=== PATIENT | female | born 1990 | race Caucasian/White ===

== ENCOUNTER 2022-10-01 07:54 | Day surgery (SDC) | payer BC, SELFPAY ==
[2022-10-01 08:14] VITALS: BMI 19.3
[2022-10-01 08:19] LABS: HCG Qualitative NEGATIVE (NEGATIVE)
[2022-10-01] MEDS: LACTATED RINGER'S SOLUTION 1,000 ML 50 ML IV (08:22)
[2022-10-01 09:23] VITALS: BP 98/63; PULSE 97; RESP 18; TEMP 36.1; O2SAT 100
[2022-10-01 09:34] VITALS: BP 100/63; PULSE 95; RESP 16; O2SAT 100
--- NOTE | 2022-10-01 09:39 | P.GSPRC_ITS ---
Indications for Procedure: This patient is a 31-year-old female who presents for EGD and colonoscopy for recent ongoing episodes of nausea vomiting and diarrhea. The risks benefits options and potential complications of the procedures were discussed in detail with the patient and they agreed to proceed and consent was signed. Pre-op diagnosis: nausea vomiting diarrhea Post-op diagnosis: other (small hiatal hernia, normal colonoscopy) Procedure: EGD with biopsy,colonoscopy with biopsy Anesthesia: MAC Surgeon: Justin Ragsdale Procedure Summary: The patient was brought to the endoscopy suite and placed in the supine and upright position. Under MAC a bite block is placed. The fiberoptic endoscope was passed through the oropharynx into the esophagus. This was easily advanced in the stomach. The stomach was insufflated. The gastric mucosa appeared grossly normal. The endoscope was advanced through the pylorus into the duodenum. This was advanced to the most distal duodenum within reach of the length of the endoscope. Biopsies were obtained of this area ?2. Both sites were hemostatic following this. The endoscope was then withdrawn into the stomach and retrofle xed. There was noted to be a small hiatal hernia. The rest of the gastric mucosa appeared normal. The remainder of esophagus was normal and final trial endoscope and this portion of procedure was ended. The patient was then placed in the left lateral decubitus position for colonoscopy.? Under continued MAC the fiberoptic colonoscope was introduced into the rectum. This was gradually advanced through the colon to the cecum. The cecal landmarks were identified. The bowel prep was good. Biopsies were obtained of the descending colon ?2. Both sites were hemostatic following this. Gradual withdrawal of the colonoscope was then undertaken. No vascular polypoid or mucosal lesions were noted throughout the entire length of the colon. The anal rectal canal was unremarkable. The colon was decompressed. Digital rectal exam was unremarkable. The procedure was ended and the patient was transferred to the recovery area in stable condition. Recommended follow-up colonoscopy in ten years. Estimated blood loss (mL): 1 Specimens: duodenal biopsies, ascending colon biopsies Complications: No
[2022-10-01 09:50] VITALS: BP 102/74; PULSE 90; RESP 16; O2SAT 100
== END 2022-10-01 10:10 | disposition home or self-care (01) ==
PROVIDERS: PCP Nurse Practitioner Family; Visit Provider Surgery
PROC: (CPT 43239; principal; 2022-10-01 09:20)
DX: R19.7 Diarrhea, unspecified (principal); R11.2 Nausea with vomiting, unspecified; K44.9 Diaphragmatic hernia without obstruction or gangrene; Z86.711 Personal history of pulmonary embolism; R10.9 Unspecified abdominal pain; F17.210 Nicotine dependence, cigarettes, uncomplicated
CPT/HCPCS: 43239; 45380; 36415; 84703; 88305; J2704